=== PATIENT | female | born 1995 | race Caucasian/White ===

== ENCOUNTER 2017-06-11 10:53 | Emergency (ER) | payer SELFPAY, OTHER, MEDICAID ==
[2017-06-11 15:56] LABS: ADD MAN DIFF? NO
[2017-06-11 15:58] LABS: WHITE BLOOD COUNT 8.1 10^3/ul (4.8-10.8)
[2017-06-11 15:58] LABS: BASOPHIL # 0.1 10^3/ul (0.0-0.1); BASOPHILS % 0.9 % (0.0-2.0); EOSINOPHILS # 0.2 10^3/ul (0.0-0.5); EOSINOPHILS % 2.9 % (0.0-7.0); HEMATOCRIT 38.1 % (37.0-47.0); HEMOGLOBIN 12.9 g/dl (12.0-16.0); LYMPHOCYTES # 2.7 10^3/ul (0.8-2.9); LYMPHOCYTES % 32.8 % (15.0-51.0); MEAN CORPUSCULAR HEMOGLOBIN 30.1 pg (29.0-33.0); MEAN CORPUSCULAR HGB CONC 33.9 g/dl (32.0-37.0); MEAN CORPUSCULAR VOLUME 88.8 fl (82.0-101.0); MEAN PLATELET VOLUME 10.6 fl (7.4-10.4); MONOCYTE # 0.7 10^3/ul (0.3-0.9); MONOCYTES % 8.2 % (0.0-11.0); NEUTROPHIL # 4.5 10^3/ul (1.6-7.5); NEUTROPHILS % 54.8 % (39.0-77.0); PLATELET COUNT 257 10^3/UL (140-415); RED BLOOD COUNT 4.29 10^6/ul (4.20-5.40); RED CELL DISTRIBUTION WIDTH 12.8 % (11.5-14.5)
[2017-06-11 16:01] LABS: ADD UMIC NO; UR ASCORBIC ACID NEGATIVE (NEGATIVE); UR BILIRUBIN (Dip) NEGATIVE (NEGATIVE); UR BLOOD (Dip) NEGATIVE (NEGATIVE); UR CLARITY CLEAR (CLEAR); UR COLOR STRAW (YELLOW); UR GLUCOSE (Dip) NEGATIVE (NEGATIVE); UR KETONES (Dip) NEGATIVE (NEGATIVE); UR LEUKOCYTE ESTERASE (Dip) NEGATIVE Leu/ul (NEGATIVE); UR NITRITE (Dip) NEGATIVE (NEGATIVE); UR SPECIFIC GRAVITY (Dip) 1.009 (1.003-1.030); UR TOTAL PROTEIN (Dip) NEGATIVE (NEGATIVE); UR UROBILINOGEN (Dip) NEGATIVE (NEGATIVE)
== END 2017-06-11 17:50 | disposition home or self-care (01) ==
LOC: FTE 10:53
DX: O26.891 Other specified pregnancy related conditions, first trimester (principal); R10.2 Pelvic and perineal pain; Z3A.01 Less than 8 weeks gestation of pregnancy
CPT/HCPCS: 76801; 81003; 84702; 85025; 86900; 86901; 99284-25

== ENCOUNTER 2017-07-18 16:12 | Emergency (ER) | payer SELFPAY ==
[2017-07-18 17:35] LABS: ADD MAN DIFF? NO
[2017-07-18 17:37] LABS: BASOPHIL # 0.1 10^3/ul (0.0-0.1); BASOPHILS % 0.6 % (0.0-2.0); EOSINOPHILS # 0.1 10^3/ul (0.0-0.5); EOSINOPHILS % 1.6 % (0.0-7.0); HEMATOCRIT 37.4 % (37.0-47.0); HEMOGLOBIN 13.1 g/dl (12.0-16.0); LYMPHOCYTES # 2.4 10^3/ul (0.8-2.9); LYMPHOCYTES % 27.6 % (15.0-51.0); MEAN CORPUSCULAR HEMOGLOBIN 29.8 pg (29.0-33.0); MEAN PLATELET VOLUME 10.7 fl (7.4-10.4); MONOCYTE # 0.6 10^3/ul (0.3-0.9); MONOCYTES % 6.5 % (0.0-11.0); NEUTROPHIL # 5.5 10^3/ul (1.6-7.5); NEUTROPHILS % 63.4 % (39.0-77.0); PLATELET COUNT 272 10^3/UL (140-415); RED CELL DISTRIBUTION WIDTH 12.1 % (11.5-14.5)
[2017-07-18 17:37] LABS: WHITE BLOOD COUNT 8.7 10^3/ul (4.8-10.8)
[2017-07-18 17:52] LABS: ADD UMIC YES; UR ASCORBIC ACID NEGATIVE (NEGATIVE); UR BACTERIA FEW /HPF (NONE SEEN); UR BILIRUBIN (Dip) NEGATIVE (NEGATIVE); UR BLOOD (Dip) 3+ mg/dL (NEGATIVE); UR CLARITY CLEAR (CLEAR); UR COLOR COLORLESS (YELLOW); UR GLUCOSE (Dip) NEGATIVE (NEGATIVE); UR KETONES (Dip) NEGATIVE (NEGATIVE); UR LEUKOCYTE ESTERASE (Dip) NEGATIVE Leu/ul (NEGATIVE); UR NITRITE (Dip) NEGATIVE (NEGATIVE); UR RBC 4 /HPF (0-5); UR SPECIFIC GRAVITY (Dip) 1.003 (1.003-1.030); UR TOTAL PROTEIN (Dip) NEGATIVE (NEGATIVE); UR UROBILINOGEN (Dip) NEGATIVE (NEGATIVE); UR WBC 1 /HPF (0-5)
== END 2017-07-18 19:27 | disposition left against medical advice (07) ==
LOC: FTE 16:12
DX: O20.9 Hemorrhage in early pregnancy, unspecified (principal); R10.2 Pelvic and perineal pain; Z3A.12 12 weeks gestation of pregnancy
CPT/HCPCS: 76801; 81001; 84702; 85025; 86900; 86901; 99284-25

== ENCOUNTER 2018-01-21 02:35 | Inpatient (IN) | payer MEDICAID ==
[2018-01-21] MEDS ORDERED: LACTATED RINGER'S 1,000 ML IV (05:34)
[2018-01-21] MEDS ORDERED: CARBOPROST 250 MCG INJ IM ×2 (06:00→12:30)
[2018-01-21] MEDS ORDERED: MISOPROSTOL 200 MCG TAB PR ×2 (06:00→12:30)
[2018-01-21] MEDS ORDERED: IBUPROFEN 600 MG TAB PO (06:00)
[2018-01-21] MEDS ORDERED: BUTORPHANOL 1 MG INJ IV (06:00)
[2018-01-21] MEDS ORDERED: METHYLERGONOVINE 0.2 MG INJ IM ×2 (06:00→12:30)
[2018-01-21] MEDS ORDERED: OXYTOCIN 30 UNITS/LR 500 ML IV ×2 (06:00→12:30)
[2018-01-21] MEDS: LACTATED RINGER'S 1,000 ML IV* (06:03)
[2018-01-21 06:27] LABS: ADD MAN DIFF? NO
[2018-01-21 06:30] LABS: WHITE BLOOD COUNT 9.7 10^3/ul (4.8-10.8)
[2018-01-21 06:30] LABS: BASOPHILS % 0.3 % (0.0-2.0); EOSINOPHILS % 0.2 % (0.0-7.0); HEMATOCRIT 33.9 % (37.0-47.0); HEMOGLOBIN 11.2 g/dl (12.0-16.0); LYMPHOCYTES # 1.5 10^3/ul (0.8-2.9); LYMPHOCYTES % 15.4 % (15.0-51.0); MEAN CORPUSCULAR HEMOGLOBIN 28.3 pg (29.0-33.0); MEAN CORPUSCULAR VOLUME 85.6 fl (82.0-101.0); MEAN PLATELET VOLUME 11.9 fl (7.4-10.4); MONOCYTE # 0.4 10^3/ul (0.3-0.9); MONOCYTES % 4.2 % (0.0-11.0); NEUTROPHIL # 7.7 10^3/ul (1.6-7.5); NEUTROPHILS % 79.5 % (39.0-77.0); PLATELET COUNT 208 10^3/UL (140-415); RED BLOOD COUNT 3.96 10^6/ul (4.20-5.40)
[2018-01-21 06:53] LABS: INR 0.88; PT RATIO 0.9
[2018-01-21 06:54] LABS: PARTIAL THROMBOPLASTIN TIME 26.7 Sec (25.0-35.0)
[2018-01-21] MEDS: BUTORPHANOL 2 MG INJ IV (06:57)
[2018-01-21 07:21] LABS: HEPATITIS B SURFACE ANTIGEN NEGATIVE (NEGATIVE)
[2018-01-21] MEDS: OXYTOCIN 30 UNITS/LR 500 ML IV ×2 (09:01→10:03)
[2018-01-21] MEDS: LIDOCAINE 1% (MPF) 30 ML INJ INJ (09:02)
[2018-01-21] MEDS ORDERED: ZOLPIDEM 5 MG TAB PO (12:30)
[2018-01-21] MEDS ORDERED: OXYCODONE/ASPIRIN (4.88/325) TAB PO (12:30)
[2018-01-21] MEDS: IBUPROFEN 600 MG TAB PO ×2 (12:54→17:43)
[2018-01-21] MEDS: BENZOCAINE 20% 56 ML SPRAY TOP (12:54)
[2018-01-21] MEDS: LANOLIN 7 GM TUBE TOP (12:55)
[2018-01-21] MEDS: WITCH HAZEL/GLYCERIN PAD PR (14:31)
[2018-01-21] MEDS: OXYCODONE/ASPIRIN (4.88/325) TAB PO (14:54)
[2018-01-21 17:22] LABS: RAPID PLASMA REAGIN NONREACTIVE (NR)
[2018-01-21] MEDS: SENNA/DOCUSATE NA (8.6MG/50MG) TAB PO (21:00)
[2018-01-22] MEDS: IBUPROFEN 600 MG TAB PO ×4 (01:23→18:32)
[2018-01-22 07:16] LABS: ADD MAN DIFF? NO
[2018-01-22 07:19] LABS: WHITE BLOOD COUNT 11.1 10^3/ul (4.8-10.8)
[2018-01-22 07:19] LABS: BASOPHIL # 0.1 10^3/ul (0.0-0.1); BASOPHILS % 0.5 % (0.0-2.0); EOSINOPHILS # 0.1 10^3/ul (0.0-0.5); EOSINOPHILS % 0.7 % (0.0-7.0); HEMOGLOBIN 10.2 g/dl (12.0-16.0); LYMPHOCYTES # 2.8 10^3/ul (0.8-2.9); MEAN CORPUSCULAR HEMOGLOBIN 28.3 pg (29.0-33.0); MEAN CORPUSCULAR HGB CONC 31.9 g/dl (32.0-37.0); MEAN CORPUSCULAR VOLUME 88.6 fl (82.0-101.0); MONOCYTE # 1.1 10^3/ul (0.3-0.9); MONOCYTES % 9.8 % (0.0-11.0); NEUTROPHIL # 7.1 10^3/ul (1.6-7.5); NEUTROPHILS % 63.5 % (39.0-77.0); PLATELET COUNT 192 10^3/UL (140-415); RED BLOOD COUNT 3.61 10^6/ul (4.20-5.40); RED CELL DISTRIBUTION WIDTH 13.4 % (11.5-14.5)
[2018-01-22] MEDS: SENNA/DOCUSATE NA (8.6MG/50MG) TAB PO ×2 (09:30→20:58)
[2018-01-23] MEDS: IBUPROFEN 600 MG TAB PO ×3 (00:07→12:57)
[2018-01-23] MEDS: SENNA/DOCUSATE NA (8.6MG/50MG) TAB PO (09:21)
[2018-01-23] MEDS: DIPHTH/TET/ACEL PERTUSS (ADULT) 0.5 ML VIAL IM* (11:05)
== END 2018-01-23 14:55 | disposition home or self-care (01) | DRG 775 ==
LOC: OBT 02:35 → L-D 02:35 → OBT 05:30 → L-D 05:30 → PP1 11:31
PROVIDERS: Obstetrics & Gynecology
PROC: 10E0XZZ Delivery of Products of Conception, External Approach (ICD-10-PCS; principal; 2018-01-21)
PROC: 0W8NXZZ Division of Female Perineum, External Approach (ICD-10-PCS; 2018-01-21)
DX: O75.89 Other specified complications of labor and delivery (principal); Z3A.38 38 weeks gestation of pregnancy; Z37.0 Single live birth; Z23 Encounter for immunization
CPT/HCPCS: 85025; 85610; 85730; 86592; 86850; 86900; 86901; 87340; 90715

== ENCOUNTER 2018-01-26 16:40 | Emergency (ER) | payer MEDICAID | END 2018-01-26 19:21 | disposition home or self-care (01) | LOC: FTE 16:40 | DX: O92.29 Other disorders of breast associated with pregnancy and the puerperium (principal) | CPT/HCPCS: 99282 ==